=== PATIENT | male | born 1940 | race African-American/Black ===

== ENCOUNTER 2021-01-09 15:25 | Inpatient (IN) | payer MEDICARE ==
[2021-01-09 16:29] LABS: Hemoglobin 12.3 g/dL (14.0-18.0); Mean Corpuscular Hemoglobin 23.8 pg (27.0-31.0); Mean Corpuscular Volume 74.3 fL (78.0-98.0); Mean Platelet Volume 7.6 fL (7.4-10.4); Platelet Count 75 thou/uL (130-400); RBC Distribution Width 14.3 % (11.5-14.5); White Blood Cell (WBC) Count 16.6 thou/uL (4.8-10.8)
[2021-01-09 16:40] LABS: ALT (SGPT) 196 U/L (8-55); AST (SGOT) 323 U/L (5-34); Albumin 2.4 g/dL (3.4-4.8); Alkaline Phosphatase 96 U/L (40-110); Anion Gap 14 mmol/L (10-20); BUN (Urea Nitrogen) 118 mg/dL (8.4-25.7); Calc. Creatinine Clearance 0 mL/min (70-130); Calcium 8.4 mg/dL (7.8-10.44); Carbon Dioxide 21 mmol/L (23-31); Chloride 102 mmol/L (98-107); Globulin 4.2 g/dL (2.4-3.5); Glucose 149 mg/dL (83-110); Potassium 3.8 mmol/L (3.5-5.1); Protein, Total 6.6 g/dL (5.8-8.1); Sodium 133 mmol/L (136-145)
[2021-01-09 16:43] LABS: Band 29 % (5-11); Lymphocytes 3 % (21-51); MDiff Complete? YES; Microcytosis SLIGHT = 6-15 cells (100X) (0-5/hpf); Monocytes 3 % (0-10); Neutrophil 63 % (42-75); Platelet Morphology Comment Appears Decreased; Reactive Lymphocytes 2 % (0-10); Rouleaux Formation SLIGHT = 1-5 cells (100X) (None Seen)
[2021-01-09 19:00] LABS: Bacteria/HPF 3+ HPF (None Seen); Bilirubin Negative (Negative); Blood, Urine 2+ (Negative); Clarity Turbid (Clear); Glucose, Urine (Dipstick) Normal (Negative); Ketone, Urine Negative (Negative); Leukocyte 75 Leu/uL (Negative); Nitrite Negative (Negative); Protein, Urine (Dipstick) 100 mg/dL (Neg-Trace); RBC/HPF 0-3 HPF (0-3); Specific Gravity, Urine 1.018 (1.002-1.036); Squamous Epithelial 0-3 HPF (0-3)
[2021-01-09] MEDS ORDERED: cefTRIAXone\\ROCEPHIN 1 GM VIAL ONE (20:01)
[2021-01-09] MEDS ORDERED: Ondansetron ODT 4 MG TAB SL PRN (21:30)
[2021-01-09] MEDS ORDERED: Sodium Chloride 0.9% 1,000 ML IV SCH (21:30)
[2021-01-09] MEDS ORDERED: Vancomycin 1.5 GRAM/300 ML BAG 1.5 GM in Premix Bag 1 BAG IVPB SCH (21:30)
[2021-01-09] MEDS ORDERED: Ondansetron PF 4 MG/2 ML Vial IVP PRN ×2 (21:30→21:40)
[2021-01-09] MEDS ORDERED: Ondansetron ODT 4 MG TAB PO PRN (21:40)
[2021-01-09 21:55] VITALS: BMI 22.8
[2021-01-09] MEDS ORDERED: Vancomycin 1 GM in Premix Bag 1 BAG IVPB SCH (22:00)
[2021-01-09 22:01] LABS: Creatinine, Urine 137.03 mg/dL (63-166)
[2021-01-09 22:03] LABS: Amphetamine Not Detected (NotDetected); Barbiturates Screen Not Detected (NotDetected); Benzodiazepine Screen Not Detected (NotDetected); Cocaine Metabolite Screen Not Detected (NotDetected); Medtox Control Line Valid? VALID (VALID); Medtox Reader # READER 4; Methadone Not Detected (NotDetected); Methamphetamine Not Detected (NotDetected); Opiate Screen Not Detected (NotDetected); Oxycodone Screen Not Detected (NotDetected); Phencyclidine (PCP) Not Detected (NotDetected); THC/Cannabinoid Screen Not Detected (NotDetected); Tricyclic Screen Not Detected (NotDetected)
[2021-01-09 22:42] LABS: Acetaminophen Less than 6.0 mcg/mL (10.0-30.0); Alcohol Less than 10 mg/dL (Less than 10); Salicylate Less than 8.0 mg/dL (15.0-30.0)
[2021-01-09 22:43] LABS: INR-International Normal Ratio 2.7; PTT 53.6 sec (22.9-36.1); Prothrombin Time 29.3 sec (12.0-14.7)
[2021-01-09] MEDS ORDERED: Cefepime 2 GM in Sodium Chloride 0.9% 100 ML IVPB SCH (23:00)
[2021-01-09 23:18] LABS: SARS-CoV-2 NAA Rapid Test Not Detected (NotDetected)
[2021-01-10 01:10] LABS: HBCM Index 0.06 S/CO (0-0.79); HBSAg Index 0.57 S/CO (0-0.99); Hep A IgM AB Non-Reactive (NonReactive); Hep A IgM S/CO 0.25 S/CO (0-0.79); Hep B Surf Ag Non-Reactive S/CO (NonReactive); Hep C IgG Ab Non-Reactive (NonReactive); Hep C Index 0.11 S/CO (0-0.79); Hepatitis B Core IgM Abs Non-Reactive (NonReactive)
[2021-01-10 07:55] LABS: Reticulocyte Count 0.2 % (0.5-1.5)
[2021-01-10 08:05] LABS: INR-International Normal Ratio 3.1; Prothrombin Time 32.3 sec (12.0-14.7)
[2021-01-10 08:08] LABS: Iron 35 ug/dL (65-175); Iron Binding Capacity, Total 118 mcg/dL (261-462)
[2021-01-10 08:09] LABS: Hemoglobin 12.5 g/dL (14.0-18.0); Mean Corpuscular HGB CONC 32.6 g/dL (32.0-36.0); Mean Corpuscular Hemoglobin 24.3 pg (27.0-31.0); Mean Corpuscular Volume 74.5 fL (78.0-98.0); Mean Platelet Volume 8.6 fL (7.4-10.4); Platelet Count 73 thou/uL (130-400); RBC Distribution Width 14.3 % (11.5-14.5); Red Blood Cell (RBC) Count 5.16 mill/uL (4.70-6.10); White Blood Cell (WBC) Count 18.2 thou/uL (4.8-10.8)
[2021-01-10 08:17] LABS: Anion Gap 17 mmol/L (10-20); BUN (Urea Nitrogen) 111 mg/dL (8.4-25.7); Calc. Creatinine Clearance 30 mL/min (70-130); Calcium 8.1 mg/dL (7.8-10.44); Carbon Dioxide 19 mmol/L (23-31); Chloride 106 mmol/L (98-107); Cholesterol 152 mg/dl (< 200 Desired); Glucose 100 mg/dL (83-110); HDL Cholesterol Less than 8 mg/dL (>60 Neg Risk); Iron 33 ug/dL (65-175); Iron Binding Capacity, Total 121 mcg/dL (261-462); Potassium 3.6 mmol/L (3.5-5.1); Sodium 138 mmol/L (136-145); Triglycerides 765 mg/dL (Less than 150)
[2021-01-10 08:43] LABS: HBSAg Index 0.17 S/CO (0-0.99); Hep B Surf Ag Non-Reactive S/CO (NonReactive); Hep C IgG Ab Non-Reactive (NonReactive); Hep C Index 0.14 S/CO (0-0.79)
[2021-01-10 08:44] LABS: Hep A IgM AB Non-Reactive (NonReactive); Hep A IgM S/CO 0.26 S/CO (0-0.79)
[2021-01-10 08:45] LABS: HBCM Index 0.05 S/CO (0-0.79); Hepatitis B Core IgM Abs Non-Reactive (NonReactive)
[2021-01-10] MEDS: Famotidine 20 MG TAB PO SCH (08:54)
[2021-01-10] MEDS: Sodium Bicarbonate Tab 325 MG TAB PO SCH ×2 (08:54→21:17)
[2021-01-10] MEDS: Tamsulosin HCl 0.4 MG CAP PO SCH (08:54)
[2021-01-10 09:05] LABS: Band 7 % (5-11); Lymphocytes 6 % (21-51); MDiff Complete? YES; Microcytosis SLIGHT = 6-15 cells (100X) (0-5/hpf); Monocytes 5 % (0-10); Neutrophil 82 % (42-75); Platelet Morphology Comment Appears Decreased; Polychromasia SLIGHT = 2-3 cells (100X) (0-2/hpf); Target Cells SLIGHT = 2-5 cells (100X) (0-1/hpf)
[2021-01-10 09:16] LABS: Ferritin 9502.27 ng/mL (22-322)
[2021-01-10] MEDS: Sodium Bicarbonate 150 MEQ in Dextrose 5% in Water 1,000 ML IV SCH (10:44)
[2021-01-10] MEDS: Warfarin Sodium 5 MG TAB PO SCH ×2 (17:43→19:47)
[2021-01-10] MEDS: cefTRIAXone\\ROCEPHIN 1 GM in Sodium Chloride 0.9% 100 ML IVPB SCH (21:17)
[2021-01-10] MEDS ORDERED: Vancomycin HCl 1 GM in Premix Bag 1 BAG IVPB SCH (23:00)
[2021-01-11] MEDS: Sodium Bicarbonate 150 MEQ in Dextrose 5% in Water 1,000 ML IV SCH ×3 (05:00→17:27)
[2021-01-11 06:29] LABS: INR-International Normal Ratio 3.5; Prothrombin Time 35.7 sec (12.0-14.7)
[2021-01-11 06:44] LABS: Albumin 2.1 g/dL (3.4-4.8); Anion Gap 15 mmol/L (10-20); BUN (Urea Nitrogen) 100 mg/dL (8.4-25.7); BUN/Creatinine Ratio 48.08; Calc. Creatinine Clearance 33 mL/min (70-130); Calcium 7.6 mg/dL (7.8-10.44); Carbon Dioxide 23 mmol/L (23-31); Chloride 102 mmol/L (98-107); Glucose 155 mg/dL (83-110); Phosphorus 3.2 mg/dL (2.3-4.7); Potassium 3.9 mmol/L (3.5-5.1); Sodium 136 mmol/L (136-145)
[2021-01-11 06:55] LABS: Alkaline Phosphatase 93 U/L (40-110)
[2021-01-11 07:00] LABS: Albumin 2.1 g/dL (3.4-4.8); Bilirubin, Total 2.1 mg/dL (0.2-1.2)
[2021-01-11 07:01] LABS: ALT (SGPT) 108 U/L (8-55); AST (SGOT) 138 U/L (5-34); Protein, Total 6.3 g/dL (5.8-8.1)
[2021-01-11 07:50] LABS: Band 1 % (5-11); Hemoglobin 11.5 g/dL (14.0-18.0); Lymphocytes 7 % (21-51); MDiff Complete? YES; Mean Corpuscular HGB CONC 32.5 g/dL (32.0-36.0); Mean Corpuscular Hemoglobin 24.4 pg (27.0-31.0); Mean Corpuscular Volume 75.2 fL (78.0-98.0); Mean Platelet Volume 9.1 fL (7.4-10.4); Microcytosis SLIGHT = 6-15 cells (100X) (0-5/hpf); Monocytes 8 % (0-10); Neutrophil 84 % (42-75); Platelet Count 75 thou/uL (130-400); Platelet Morphology Comment Appears Decreased; RBC Distribution Width 14.1 % (11.5-14.5); Red Blood Cell (RBC) Count 4.71 mill/uL (4.70-6.10); Target Cells MODERATE= 6-15 cells (100X) (0-1/hpf); White Blood Cell (WBC) Count 15.7 thou/uL (4.8-10.8)
[2021-01-11] MEDS: Famotidine 20 MG TAB PO SCH (08:14)
[2021-01-11] MEDS: Sodium Bicarbonate Tab 325 MG TAB PO SCH ×2 (08:14→21:31)
[2021-01-11] MEDS: Tamsulosin HCl 0.4 MG CAP PO SCH (08:15)
[2021-01-11] MEDS: cefTRIAXone\\ROCEPHIN 1 GM in Sodium Chloride 0.9% 100 ML IVPB SCH (21:31)
[2021-01-12 06:15] LABS: INR-International Normal Ratio 2.7; Prothrombin Time 29.4 sec (12.0-14.7)
[2021-01-12 06:26] LABS: ALT (SGPT) 93 U/L (8-55); AST (SGOT) 103 U/L (5-34); Albumin 2.1 g/dL (3.4-4.8); Alkaline Phosphatase 100 U/L (40-110); Bilirubin, Direct 1.3 mg/dL (0.1-0.3); Bilirubin, Total 2.2 mg/dL (0.2-1.2); Protein, Total 6.4 g/dL (5.8-8.1)
[2021-01-12] MEDS: Sodium Bicarbonate 150 MEQ in Dextrose 5% in Water 1,000 ML IV SCH ×2 (07:05→23:43)
[2021-01-12] MEDS ORDERED: VANCOMYCIN 1.25 GM/250 ML BAG IVPB SCH (09:00)
[2021-01-12 09:01] LABS: Anion Gap 19 mmol/L (10-20); BUN (Urea Nitrogen) 85 mg/dL (8.4-25.7); Calc. Creatinine Clearance 28 mL/min (70-130); Calcium 8.1 mg/dL (7.8-10.44); Carbon Dioxide 20 mmol/L (23-31); Chloride 104 mmol/L (98-107); Glucose 138 mg/dL (83-110); Potassium 4.6 mmol/L (3.5-5.1); Sodium 138 mmol/L (136-145)
[2021-01-12] MEDS: Sodium Bicarbonate Tab 325 MG TAB PO SCH ×2 (09:33→20:25)
[2021-01-12] MEDS: Acetaminophen 325 MG TAB PO PRN ×2 (09:33→20:26)
[2021-01-12] MEDS: Tamsulosin HCl 0.4 MG CAP PO SCH (09:33)
[2021-01-12] MEDS: Famotidine 20 MG TAB PO SCH (09:33)
[2021-01-12] MEDS: VANCOMYCIN 1.25 GM/250 ML BAG 1.25 GM in Premix Bag 1 BAG IVPB SCH (09:34)
[2021-01-12] MEDS: Warfarin Sodium 3.75 MG HALF.TAB PO SCH (16:51)
[2021-01-13 06:24] LABS: INR-International Normal Ratio 2.7; Prothrombin Time 28.9 sec (12.0-14.7)
[2021-01-13 06:38] LABS: Anion Gap 14 mmol/L (10-20); BUN (Urea Nitrogen) 60 mg/dL (8.4-25.7); Calc. Creatinine Clearance 44 mL/min (70-130); Calcium 8.1 mg/dL (7.8-10.44); Carbon Dioxide 32 mmol/L (23-31); Chloride 96 mmol/L (98-107); Glucose 148 mg/dL (83-110); Potassium 3.3 mmol/L (3.5-5.1); Sodium 139 mmol/L (136-145)
[2021-01-13] MEDS: Acetaminophen 325 MG TAB PO PRN ×2 (07:59→20:23)
[2021-01-13] MEDS: Famotidine 20 MG TAB PO SCH (07:59)
[2021-01-13] MEDS: Sodium Bicarbonate Tab 325 MG TAB PO SCH ×2 (07:59→20:23)
[2021-01-13] MEDS: Tamsulosin HCl 0.4 MG CAP PO SCH (07:59)
[2021-01-13 08:14] LABS: Vancomycin, Trough 12.8 ug/mL
[2021-01-13] MEDS: VANCOMYCIN 1.25 GM/250 ML BAG 1.25 GM in Premix Bag 1 BAG IVPB SCH (09:23)
[2021-01-13] MEDS ORDERED: Potassium Chloride 20 MEQ TAB PO SCH (14:30)
[2021-01-13] MEDS ORDERED: Benzonatate 100 MG CAP PO SCH ×2 (15:30→21:00)
[2021-01-13] MEDS: Warfarin Sodium 3.75 MG HALF.TAB PO SCH (18:17)
[2021-01-13 20:49] VITALS: BP 143/77; TEMP 99.5
[2021-01-14] MEDS ORDERED: Sodium Bicarb 50 MEQ/50 ML Abboject 8.4% SYRINGE ONE (07:01)
[2021-01-14] MEDS ORDERED: EPINEPHrine 1 MG/10 ML Abboject SYRINGE ONE (07:01)
[2021-01-14] MEDS ORDERED: Dextrose 50% Abboject 50 ML SYRINGE ONE (07:01)
[2021-01-14 07:04] LABS: INR-International Normal Ratio 3.2; Prothrombin Time 33.4 sec (12.0-14.7)
[2021-01-14 07:14] LABS: ALT (SGPT) 58 U/L (8-55); AST (SGOT) 60 U/L (5-34); Albumin 2.1 g/dL (3.4-4.8); Alkaline Phosphatase 96 U/L (40-110); Bilirubin, Direct 0.9 mg/dL (0.1-0.3); Bilirubin, Total 1.8 mg/dL (0.2-1.2); Protein, Total 6.7 g/dL (5.8-8.1)
[2021-01-14 07:14] LABS: Complement-C4 32.4 mg/dL (Not Available)
[2021-01-14 07:54] LABS: Vancomycin, Trough 11.3 ug/mL
[2021-01-14] MEDS ORDERED: Vancomycin 1.5 GRAM/300 ML BAG 1.5 GM in Premix Bag 1 BAG IVPB SCH (11:00)
[2021-01-16 11:38] LABS: Hemoglobin A2 2.6; Hemoglobin F 0
== END 2021-01-14 07:21 | disposition expired | DRG 683 ==
LOC: ERS 15:25 → T4-A 19:02
PROVIDERS: ADMIT Internal Medicine; ATTEND Internal Medicine
PROC: 5A12012 Performance of Cardiac Output, Single, Manual (ICD-10-PCS; principal; 2021-01-14)
PROC: 3E033XZ Introduction of Vasopressor into Peripheral Vein, Percutaneous Approach (ICD-10-PCS; 2021-01-14)
PROC: 0BH18EZ Insertion of Endotracheal Airway into Trachea, Via Natural or Artificial Opening Endoscopic (ICD-10-PCS; 2021-01-14)
DX: N17.9 Acute kidney failure, unspecified (principal); N39.0 Urinary tract infection, site not specified; R78.81 Bacteremia; N13.8 Other obstructive and reflux uropathy; M62.82 Rhabdomyolysis; E87.2 Acidosis; E87.3 Alkalosis; E86.0 Dehydration; B95.4 Other streptococcus as the cause of diseases classified elsewhere; E87.6 Hypokalemia; R94.5 Abnormal results of liver function studies; Z20.822 Contact with and (suspected) exposure to COVID-19; E88.09 Other disorders of plasma-protein metabolism, not elsewhere classified; N28.1 Cyst of kidney, acquired; K57.30 Diverticulosis of large intestine without perforation or abscess without bleeding; R31.9 Hematuria, unspecified; M10.9 Gout, unspecified; I25.10 Atherosclerotic heart disease of native coronary artery without angina pectoris; E78.5 Hyperlipidemia, unspecified; D53.9 Nutritional anemia, unspecified; R74.01 Elevation of levels of liver transaminase levels; N18.30 Chronic kidney disease, stage 3 unspecified; D63.1 Anemia in chronic kidney disease; N40.1 Benign prostatic hyperplasia with lower urinary tract symptoms; I12.9 Hypertensive chronic kidney disease with stage 1 through stage 4 chronic kidney disease, or unspecified chronic kidney disease; I46.9 Cardiac arrest, cause unspecified; Z87.891 Personal history of nicotine dependence; Z95.2 Presence of prosthetic heart valve; Z79.899 Other long term (current) drug therapy; Z79.01 Long term (current) use of anticoagulants; Z91.14 Patient's other noncompliance with medication regimen; Z86.010 Personal history of colon polyps; Z90.49 Acquired absence of other specified parts of digestive tract
CPT/HCPCS: 0240U; 36415; 71045; 71250; 74176; 76705; 76770; 80048; 80053; 80061; 80069; 80074; 80076; 80202; 80306; 80307; 81003; 81015; 82550; 82570; 82728; 83021; 83540; 83550; 83605; 84300; 85025; 85046; 85610; 85730; 86160; 87040; 87077; 87086; 87149; 93306; 96365; J0171; J0692; J0696; J3370; J3490; J7070